=== PATIENT | female | born 1955 | race Caucasian/White ===

== ENCOUNTER 2018-06-16 16:17 | Outpatient (REF) | payer BC, SELFPAY ==
[2018-06-16 21:18] LABS: TSH 2.27 uIU/mL (0.358-3.74)
== END 2018-06-16 16:37 ==
LOC: NCHCN 16:17
PROVIDERS: PCP Internal Medicine; Visit Provider Registered Nurse
DX: E03.9 Hypothyroidism, unspecified (principal)
CPT/HCPCS: 84443

== ENCOUNTER 2018-09-02 09:55 | Outpatient (CLI) | payer BC, SELFPAY ==
--- NOTE | 2018-09-02 09:51 | DI.RAD_ITS ---
SYMPTOM/DIAGNOSIS: PAIN RIGHT KNEE: The bony structures are normally mineralized. Joint space is intact. A small area of spurring is noted at the level of the quadriceps insertion on the patella. There is no evidence of a joint effusion. The examination is otherwise unremarkable.
== END 2018-09-02 10:15 ==
PROVIDERS: PCP Internal Medicine; Visit Provider Orthopaedic Surgery
DX: M25.561 Pain in right knee (principal); M76.9 Unspecified enthesopathy, lower limb, excluding foot
CPT/HCPCS: 73560

== ENCOUNTER 2018-12-10 22:33 | Outpatient (REF) | payer BC, SELFPAY ==
[2018-12-10 22:37] LABS: Bilirubin Negative (Negative); Blood Negative (Negative); Clarity Clear (Clear); Glucose Negative (Negative); Ketones Negative (Negative); Leukocyte Esterase Trace (Negative); Nitrite Negative (Negative); Urobilinogen 0.2 EU/dL (Up TO 0.2); pH 6.5 (5-8)
[2018-12-10 22:49] LABS: Bacteria Negative HPF (Negative); C & S Indicated? Yes; Casts Negative LPF (Negative); Crystals Negative HPF (Negative); Epithelial Cells Negative HPF (Negative); Mucus Negative (Negative); Other Cells Rare Transitional (Negative); RBC Negative (0-2)
== END 2018-12-10 22:53 ==
LOC: NCHCN 22:33
PROVIDERS: PCP Internal Medicine; Visit Provider Family Medicine
DX: R35.0 Frequency of micturition (principal)
CPT/HCPCS: 81003; 81015; 87086

== ENCOUNTER 2019-02-12 17:09 | Outpatient (REF) | payer BC, SELFPAY ==
--- NOTE | 2019-02-12 16:05 | PAPFT_PTH ---
PATIENT: Nighat Gonzalez LOC: [facility]#:[id number] AGE/SX: 64/F ROOM: RE02/12/[address]: Khushbu Wilkins : 1955 BED: DIS: 02/12/2019 SPEC #: [id number] RECD: 02/13/19 13:04 STATUS: MIRI URENA #: [id number] DARRYL: 02/12/19 16:[address]: Khushbu Wilkins [facility]PT[facility] Cytology RECD BY: Arcelia Alcocer ENTERED: 02/13/19 13:04 SP TYPE: PAPFT OTHR DR: Otf Shaikh Tissues: 1 - CX/ENDOCX FOR PAP SMEARS Procedures: PAP THIN PREP/[facility] Screening HPV DNA PROBE Comments: [id number]
[2019-02-12 22:34] LABS: Absolute Basophil Count 0.04 k/cumm (0.0-0.2); Absolute Eosinophil Count 0.18 k/cumm (0.0-0.7); Absolute Lymphocyte Count 1.73 k/cumm (1.2-3.4); Absolute Monocyte Count 0.37 k/cumm (0.11-0.7); Absolute Neutrophil Count 3.34 k/cumm (1.2-6.7); Basophils % 0.7; Eosinophils % 3.2; HCT 44.9 % (36.0-46.0); HGB 14.4 g/dL (12.0-15.5); Lymphocytes % 30.6; Mean Corp. HGB Concentration 32.1 g/dL (32.0-36.0); Mean Corpuscular Hemoglobin 29.9 pg (27.0-33.0); Mean Corpuscular Volume 93.2 fL (80-95); Mean Platelet Volume 12.2 fL (8.0-11.0); Monocytes % 6.5; Platelet Count 214 x1000/uL (130-400); RBC 4.82 m/cumm (4.00-5.20); RBC Distribution Width 12.9 % (11.7-14.6); White Blood Cell Count 5.66 k/cumm (4.4-10.8)
[2019-02-12 23:09] LABS: ALT 26 U/L (14-59); AST 19 U/L (15-37); Alkaline Phosphatase 60 U/L (46-116); Anion Gap 8.2 mmol/L (3-11); BUN 17 mg/dL (7-18); Bilirubin, Total 0.5 mg/dL (0.2-1.0); CO2 28.8 mmol/L (21.0-32.0); CREATININE 0.69 mg/dL (0.55-1.02); Calcium 9.5 mg/dL (8.5-10.1); Calculated LDL 126 mg/dL; Chloride 105 mmol/L (98-107); Cholesterol 218 mg/dL (<200); Glucose 96 mg/dL (74-106); HDL Cholesterol 77 mg/dL (40-60); Potassium 4.5 mmol/L (3.5-5.1); Sodium 142 mmol/L (136-145); TSH 2.45 uIU/mL (0.36-3.74); Total Protein 7.2 g/dL (6.4-8.2); Triglyceride 76 mg/dL (<150)
[2019-02-12 23:17] LABS: C-Reactive Protein 0.12 mg/dL (0.0-0.3)
== END 2019-02-12 17:29 ==
LOC: NCHCN 17:09
PROVIDERS: PCP Internal Medicine; Visit Provider Internal Medicine
DX: Z00.00 Encounter for general adult medical examination without abnormal findings (principal); R53.83 Other fatigue; E03.9 Hypothyroidism, unspecified; Z12.4 Encounter for screening for malignant neoplasm of cervix
CPT/HCPCS: 80053; 80061; 88142; 84443; 85025; 86140; 87624

== ENCOUNTER 2019-04-16 15:45 | Outpatient (REF) | payer BC, SELFPAY ==
[2019-04-16 21:42] LABS: Vitamin D 25 Total 31.3 ng/ml (30-100)
== END 2019-04-16 16:05 ==
LOC: NCHCN 15:45
PROVIDERS: PCP Internal Medicine; Visit Provider Internal Medicine
DX: M81.0 Age-related osteoporosis without current pathological fracture (principal)
CPT/HCPCS: 82306

== ENCOUNTER 2019-11-20 14:24 | Outpatient (REF) | payer BC, SELFPAY ==
[2019-11-24 01:59] LABS: SARS-CoV-2 RNA Undetected (Undetected)
== END 2019-11-20 14:44 ==
LOC: NCHCN 14:24
PROVIDERS: PCP Internal Medicine; Visit Provider Internal Medicine
DX: R53.83 Other fatigue (principal); Z11.59 Encounter for screening for other viral diseases
CPT/HCPCS: U0003

== ENCOUNTER 2020-02-22 19:16 | Outpatient (REF) | payer BC, SELFPAY ==
[2020-02-22 21:40] LABS: TSH 3.11 uIU/mL (0.36-3.74)
== END 2020-02-22 19:36 ==
LOC: NCHCN 19:16
PROVIDERS: PCP Internal Medicine; Visit Provider Internal Medicine
DX: Z00.00 Encounter for general adult medical examination without abnormal findings (principal); E03.9 Hypothyroidism, unspecified
CPT/HCPCS: 84443

== ENCOUNTER 2020-03-15 20:57 | Outpatient (REF) | payer BC, SELFPAY ==
[2020-03-15 21:07] LABS: ALT 22 U/L (14-59); AST 19 U/L (15-37); Albumin 3.7 g/dL (3.4-5.0); Alkaline Phosphatase 47 U/L (46-116); Anion Gap 7.3 mmol/L (3-11); BUN 14 mg/dL (7-18); Bilirubin, Total 0.7 mg/dL (0.2-1.0); CO2 29.7 mmol/L (21.0-32.0); Calcium 8.7 mg/dL (8.5-10.1); Calculated LDL 115 mg/dL (<100); Chloride 105 mmol/L (98-107); Cholesterol 208 mg/dL (<200); Glucose 83 mg/dL (74-106); HDL Cholesterol 78 mg/dL (40-60); Potassium 4.2 mmol/L (3.5-5.1); Sodium 142 mmol/L (136-145); Total Protein 6.6 g/dL (6.4-8.2); Triglyceride 79 mg/dL (<150)
== END 2020-03-15 21:17 ==
LOC: NCHCN 20:57
PROVIDERS: PCP Internal Medicine; Visit Provider Internal Medicine
DX: I10 Essential (primary) hypertension (principal); E78.5 Hyperlipidemia, unspecified
CPT/HCPCS: 80053; 80061

== ENCOUNTER 2021-02-23 12:58 | Outpatient (REF) | payer BC, SELFPAY ==
[2021-02-23 14:30] LABS: Anion Gap 7.6 mmol/L (3-11); BUN 13 mg/dL (7-18); CO2 30.4 mmol/L (21.0-32.0); CREATININE 0.6 mg/dL (0.55-1.02); Calcium 8.8 mg/dL (8.5-10.1); Calculated LDL 121 mg/dL (<100); Chloride 106 mmol/L (98-107); Cholesterol 206 mg/dL (<200); Glucose 88 mg/dL (74-106); HDL Cholesterol 72 mg/dL (40-60); Potassium 4.3 mmol/L (3.5-5.1); Sodium 144 mmol/L (136-145); TSH 3.21 uIU/mL (0.36-3.74); Triglyceride 65 mg/dL (<150)
== END 2021-02-23 12:59 | disposition home or self-care (01) ==
LOC: NCHCN 12:58
PROVIDERS: PCP Internal Medicine; Visit Provider Internal Medicine
DX: E03.9 Hypothyroidism, unspecified (principal); R03.0 Elevated blood-pressure reading, without diagnosis of hypertension; Z00.00 Encounter for general adult medical examination without abnormal findings
CPT/HCPCS: 80048; 80061; 84443

== ENCOUNTER 2022-01-03 19:45 | Outpatient (REF) | payer MEDICARE, SELFPAY ==
[2022-01-03 20:24] LABS: Abs Immature Grans 0.03 10^3/uL (0.0-0.06); Absolute Basophil Count 0.05 10^3/uL (0.0-0.2); Absolute Eosinophil Count 0.07 10^3/uL (0.0-0.7); Absolute Lymphocyte Count 1.21 10^3/uL (1.2-3.4); Absolute Monocyte Count 0.89 10^3/uL (0.1-0.8); Absolute Neutrophil Count 9.03 10^3/uL (1.2-6.7); Basophils % 0.4; Eosinophils % 0.6; HCT 40.1 % (36.0-46.0); Immature Grans % 0.3; Lymphocytes % 10.7; MCH 29.3 pg (27.0-33.0); MCHC 32.4 % (32.0-36.0); MCV 90 fL (80-95); MPV 11.1 fL (8.0-11.0); Monocytes % 7.9; Neutrophils % 80.1; Platelet Count 235 10^3/uL (130-400); RBC 4.44 10^6/uL (3.93-5.22); RDW 12.2 % (11.7-14.6); RDW-SD 40.5 fL; WBC 11.27 10^3/uL (4.4-10.8)
[2022-01-03 20:42] LABS: ALT 20 U/L (14-59); AST 21 U/L (15-37); Albumin 3.4 g/dL (3.4-5.0); Alkaline Phosphatase 81 U/L (46-116); Anion Gap 7.8 mmol/L (3-11); BUN 10 mg/dL (7-18); Bilirubin, Total 0.5 mg/dL (0.2-1.0); CO2 29.2 mmol/L (21.0-32.0); CREATININE 0.6 mg/dL (0.55-1.02); Calcium 9.1 mg/dL (8.5-10.1); Chloride 102 mmol/L (98-107); Estimated GFR 98.32 (mL/min/1.73m2); Glucose 100 mg/dL (74-106); Potassium 4.1 mmol/L (3.5-5.1); Sodium 139 mmol/L (136-145); Total Protein 7.6 g/dL (6.4-8.2)
== END 2022-01-03 19:46 | disposition home or self-care (01) ==
LOC: NCHCN 19:45
PROVIDERS: PCP Internal Medicine; Visit Provider Registered Nurse
DX: R10.9 Unspecified abdominal pain (principal)
CPT/HCPCS: 80053; 85025

== ENCOUNTER 2022-05-30 17:54 | Outpatient (REF) | payer MEDICARE, SELFPAY ==
[2022-05-30 21:23] LABS: HCT 40.9 % (36.0-46.0); HGB 13.4 g/dL (11.2-15.7); MCH 30.5 pg (27.0-33.0); MCHC 32.8 % (32.0-36.0); MCV 93 fL (80-95); MPV 11.8 fL (8.0-11.0); Platelet Count 192 10^3/uL (130-400); RBC 4.39 10^6/uL (3.93-5.22); RDW 12.6 % (11.7-14.6); RDW-SD 42.2 fL; WBC 5.67 10^3/uL (4.4-10.8)
[2022-05-30 21:47] LABS: Anion Gap 6.5 mmol/L (3-11); BUN 14 mg/dL (7-18); CO2 29.5 mmol/L (21.0-32.0); CREATININE 0.8 mg/dL (0.55-1.02); Calcium 9.3 mg/dL (8.5-10.1); Calculated LDL 139 mg/dL (<100); Chloride 107 mmol/L (98-107); Cholesterol 226 mg/dL (<200); Estimated GFR 80.21 (mL/min/1.73m2); Glucose 91 mg/dL (74-106); HDL Cholesterol 69 mg/dL (40-60); Potassium 4.2 mmol/L (3.5-5.1); Sodium 143 mmol/L (136-145); TSH 1.39 uIU/mL (0.36-3.74); Triglyceride 92 mg/dL (<150)
[2022-06-28 09:52] LABS: Fungus Smear No Fungi Seen
== END 2022-05-30 17:55 | disposition home or self-care (01) ==
LOC: NCHCN 17:54
PROVIDERS: PCP Internal Medicine; Visit Provider Internal Medicine
DX: E03.9 Hypothyroidism, unspecified (principal); B35.1 Tinea unguium
CPT/HCPCS: 80048; 80061; 85027; 87101; 87102; 87206; 84443

== ENCOUNTER 2023-05-24 19:46 | Outpatient (REF) | payer MEDICARE, SELFPAY ==
[2023-05-24 15:11] LABS: Anion Gap 5.8 mmol/L (3-11); BUN 13 mg/dL (7-18); CO2 30.2 mmol/L (21.0-32.0); CREATININE 0.7 mg/dL (0.55-1.02); Calcium 9.3 mg/dL (8.5-10.1); Calculated LDL 130 mg/dL (<100); Chloride 105 mmol/L (98-107); Cholesterol 220 mg/dL (<200); Estimated GFR 93.56 (mL/min/1.73m2); Glucose 92 mg/dL (74-106); HDL Cholesterol 75 mg/dL (40-60); Sodium 141 mmol/L (136-145); TSH 5.26 uIU/Ml (0.36-3.74); Triglyceride 75 mg/dL (<150)
== END 2023-05-24 19:47 | disposition home or self-care (01) ==
LOC: NCHCN 19:46
PROVIDERS: PCP Internal Medicine; Referring Provider Internal Medicine; Visit Provider Internal Medicine
DX: E03.9 Hypothyroidism, unspecified (principal); R79.89 Other specified abnormal findings of blood chemistry
CPT/HCPCS: 80048; 80061; 84443

== ENCOUNTER 2023-07-31 10:49 | Outpatient (REF) | payer MEDICARE, SELFPAY ==
[2023-07-31 15:19] LABS: TSH 2.18 uIU/Ml (0.36-3.74)
== END 2023-07-31 10:50 | disposition home or self-care (01) ==
LOC: NCHCN 10:49
PROVIDERS: PCP Internal Medicine; Visit Provider Internal Medicine
DX: E03.9 Hypothyroidism, unspecified (principal)
CPT/HCPCS: 84443

== ENCOUNTER 2024-05-27 09:34 | Outpatient (REF) | payer MEDICARE, SELFPAY ==
[2024-05-27 15:54] LABS: HCT 44.7 % (36.0-46.0); HGB 14.5 g/dL (11.2-15.7); MCH 29.9 pg (27.0-33.0); MCHC 32.4 % (32.0-36.0); MCV 92 fL (80-95); MPV 11.9 fL (8.0-11.0); Platelet Count 209 10^3/uL (130-400); RBC 4.85 10^6/uL (3.93-5.22); RDW 12.5 % (11.7-14.6); RDW-SD 42.5 fL
[2024-05-27 16:29] LABS: Anion Gap 5.2 mmol/L (3-11); BUN 14 mg/dL (7-18); CO2 30.8 mmol/L (21.0-32.0); CREATININE 0.8 mg/dL (0.55-1.02); Calcium 9.3 mg/dL (8.5-10.1); Calculated LDL 76 mg/dL (<100); Chloride 105 mmol/L (98-107); Cholesterol 174 mg/dL (<200); Estimated GFR 79.22 (mL/min/1.73m2); Glucose 93 mg/dL (74-106); HDL Cholesterol 83 mg/dL (>or=50); Potassium 4.3 mmol/L (3.5-5.1); Sodium 141 mmol/L (136-145); TSH 1.17 uIU/mL (0.36-3.74); Triglyceride 79 mg/dL (<150)
== END 2024-05-27 09:35 | disposition home or self-care (01) ==
LOC: NCHCN 09:34
PROVIDERS: PCP Internal Medicine; Visit Provider Internal Medicine
DX: E78.5 Hyperlipidemia, unspecified (principal)
CPT/HCPCS: 80048; 80061; 85027; 84443

== ENCOUNTER 2024-08-18 15:29 | Outpatient (REF) | payer MEDICARE, SELFPAY | END 2024-08-18 15:30 | disposition home or self-care (01) | LOC: NCHCN 15:29 | PROVIDERS: PCP Internal Medicine; Visit Provider Physician Assistant | DX: N39.0 Urinary tract infection, site not specified (principal); R82.89 Other abnormal findings on cytological and histological examination of urine | CPT/HCPCS: 87086 ==

== ENCOUNTER 2024-09-28 13:54 | Outpatient (REF) | payer MEDICARE, SELFPAY ==
[2024-09-28 14:52] LABS: Anion Gap 3.4 mmol/L (3-11); BUN 15 mg/dL (7-18); CO2 31.6 mmol/L (21.0-32.0); Calcium 9.1 mg/dL (8.5-10.1); Chloride 104 mmol/L (98-107); Estimated GFR 96.50 (mL/min/1.73m2); Glucose 96 mg/dL (74-106); Potassium 4.4 mmol/L (3.5-5.1); Sodium 139 mmol/L (136-145)
== END 2024-09-28 13:55 | disposition home or self-care (01) ==
LOC: NCHCN 13:54
PROVIDERS: PCP Internal Medicine; Visit Provider Internal Medicine
DX: I10 Essential (primary) hypertension (principal)
CPT/HCPCS: 80048